=== PATIENT | female | born 1975 | race American Indian/Alaskan Native ===

== ENCOUNTER 2017-02-08 15:56 | Emergency (ER) | payer BC ==
[2017-02-08 16:15] VITALS: BMI 23.6
[2017-02-08 16:18] VITALS: TEMP 98; O2SAT 100
[2017-02-08] MEDS ORDERED: Sodium Chloride 0.9% 1,000 ML IV STA (16:31)
[2017-02-08 17:19] LABS: ADD MANUAL DIFF? NO
[2017-02-08 17:27] LABS: BASO # 0.03 K/mm3 (0.0-2.0); BASO % 0.4 % (0.0-3.0); EOS # 0.1 (0.0-0.7); GRAN # 3.74 (1.4-6.5); HEMATOCRIT 35.7 % (36.0-48.0); LYMPH # 3.4 (1.2-3.4); LYMPH % 42.9 % (22.0-35.0); MEAN CELL VOLUME 94.9 fL (80.0-105.0); MEAN CORPUSCULAR HEMOGLOBIN 32.7 pg (25.0-35.0); MEAN CORPUSCULAR HGB CONC 34.5 g/dl (31.0-37.0); MEAN PLATELET VOLUME 10.5 fl (7.0-11.0); MONO # 0.6 (0.1-0.6); MONO % 7.7 % (1.0-6.0); PLATELET COUNT 192 10^3/uL (120.0-450.0); RED CELL DISTRIBUTION WIDTH 12.3 % (11.5-14.5); WHITE BLOOD COUNT 7.8 10^3/ul (4.5-11.0)
--- NOTE | 2017-02-08 17:29 | ED PDOC ---
Arrival/HPI - General Chief Complaint: Abdominal Pain Time Seen by Provider: 02/08/17 16:20 - History of Present Illness Associated Symptoms (Text): Patient is a 41 yr old female who states that for the past 1 week she has been having a gassy feeling in her "belly" (pointing to the midepigastric area). She has also been belching frequently. She has been diagnosed in the past w/ a hiatal hernia and was told that she may one day have to be started on medications for that. Tums and Pepto Bismo did help her symptoms slightly. No N/V. No fever. PMD: Dr. Ila De Leon . Past Medical History - Provider Review Nursing Documentation Reviewed: Yes - Patient History Narrative Patient History: PMH: Hiatal hernia, endometriosis - Psychiatric Hx Substance Use: No - Surgical History Other/Comment: ovarian cyst. Endometriosis Surgery - Suicidal Assessment Feels Threatened In Home Enviroment: No Family/Social History - Physician Review Nursing Documentation Reviewed: Yes Family/Social History: Diabetes, Hypertension, Neoplasm/Cancer Smoking Status: Never Smoked Hx Alcohol Use: No Hx Substance Use: No Allergies/Home Meds Allergies/Adverse Reactions: Allergies strawberry Allergy (Verified 02/08/17 16:15) RASH Home Medications: Home Meds Medication Instructions Recorded Confirmed Norethindrone-Ethinyl Estrad [Faby 1 tab PO DAILY 10/22/16 02/08/17 35 Mcg-0.5 mg] Review of Systems - Physician Review All systems were reviewed & negative as marked: Yes - Review of Systems Constitutional: absent: Fatigue Respiratory: absent: SOB Cardiovascular: absent: Chest Pain Gastrointestinal: Abdominal Pain. absent: Vomiting Musculoskeletal: absent: Back Pain Neurological: absent: Headache Physical Exam Vital Signs Reviewed: Yes Vital Signs Temp Pulse Resp BP Pulse Ox 02/08/17 18:00 71 18 128/79 100 02/08/17 16:15 98 F 78 15 130/89 100 Temperature: Afebrile Blood Pressure: Normal Pulse: Regular Respiratory Rate: Normal Appearance: Positive for: Well-Appearing, Non-Toxic, Comfortable Pain Distress: None Mental Status: Positive for: Alert and Oriented X 3 - Systems Exam Head: Present: Atraumatic, Normocephalic Extroacular Muscles: Present: EOMI Conjunctiva: Present: Normal Ears: Present: Normal Mouth: Present: Moist Mucous Membranes Pharnyx: Present: Normal Nose (External): Present: Atraumatic Neck: Present: Normal Range of Motion Respiratory/Chest: Present: Clear to Auscultation, Good Air Exchange. No: Respiratory Distress, Accessory Muscle Use Cardiovascular: Present: Regular Rate and Rhythm, Normal S1, S2. No: Murmurs Abdomen: Present: Tenderness (mid-epigastric area), Normal Bowel Sounds. No: Distention, Rebound, Guarding Upper Extremity: Present: Normal Inspection. No: Cyanosis, Edema Lower Extremity: Present: Normal Inspection. No: Edema Neurological: Present: Speech Normal, Motor Func Grossly Intact, Normal Sensory Function Skin: Present: Warm, Dry, Normal Color. No: Rashes Psychiatric: Present: Alert, Oriented x 3, Normal Insight, Normal Concentration Medical Decision Making ED Course and Treatment: 02/08/17 17:31 Initial Impression: Midepigastric pain--possibly due to underlying hiatial hernia/PUD Initial Plan: Will check labs and give Pepcid 02/08/17 18:33 Patient feels better after pepcid. Abd nontender. Will d/c home. - Lab Interpretations Lab Results: 02/08/17 17:07 02/08/17 17:07 Lab Results 02/08/17 17:07: WBC 7.8, RBC 3.76, Hgb 12.3, Hct 35.7 L, MCV 94.9, MCH 32.7, MCHC 34.5, RDW 12.3, Plt Count 192, MPV 10.5, Gran % 48.0 L, Lymph % (Auto) 42.9 H, [place] % (Auto) 7.7 H, Eos % (Auto) 1.0 L, Baso % (Auto) 0.4, Gran # 3.74 , Lymph # 3.4, [place] # 0.6, Eos # 0.1, Baso # 0.03, PT 10.7, INR 0.99, APTT 26.4 , Sodium 142, Potassium 4.1, Chloride 103, Carbon Dioxide 27, Anion Gap 16, BUN 7, Creatinine 0.7, Est GFR ( Amer) > 60, Est GFR (Non-Af Amer) > 60, Random Glucose 98, Calcium 9.3, Total Bilirubin 0.6, AST 26, ALT 6 L, Alkaline Phosphatase 60, Total Protein 8.2, Albumin 4.1, Globulin 4.1, Albumin/Globulin Ratio 1.0 L, Lipase 95 02/08/17 16:33: Urine Color Yellow, Urine Appearance Clear, Urine pH 6.5, Ur Specific Wiggins <= 1.005, Urine Protein Negative, Urine Glucose (UA) Negative, Urine Ketones Negative, Urine Blood Large H, Urine Nitrate Negative, Urine Bilirubin Negative, Urine Urobilinogen 0.2, Ur Leukocyte Esterase Negative, Urine RBC 15 - 20, Urine WBC 1 - 3, Ur Epithelial Cells 1 - 3, Urine Bacteria Few, Urine HCG, Qual Negative - Medication Orders Current Medication Orders: Sodium Chloride (Sodium Chloride 0.9%) 1,000 mls @ 100 mls/hr IV .Q10H STA Stop: 02/09/17 02:30 Last Admin: 02/08/17 16:58 Dose: 100 MLS/HR eMAR Start Stop Document 02/08/17 16:58 OCS (Rec: 02/08/17 17:05 OCS [facility] [id number]) Intravenous Solution Start Date 02/08/17 Start Time 17:05 Discontinued Medications Famotidine (Pepcid) 20 mg IVP STAT STA Stop: 02/08/17 16:32 Last Admin: 02/08/17 17:05 Dose: 20 MG IVP Administration Document 02/08/17 17:05 OCS (Rec: 02/08/17 17:05 OCS [facility] [id number]) Charges for Administration # of IVP Administrations 1 Disposition/Present on Arrival - Present on Arrival Any Indicators Present on Arrival: No History of DVT/PE: No History of Uncontrolled Diabetes: No Urinary Catheter: No History of Decub. Ulcer: No History Surgical Site Infection Following: None - Disposition Have Diagnosis and Disposition been Completed?: Yes Diagnosis: Hiatal hernia Disposition: HOME/ ROUTINE Disposition Time: 18:35 Patient Plan: Discharge Patient Problems: Current Active Problems Problem Status Diagnosed Hiatal hernia Acute Condition: IMPROVED Discharge Instructions (ExitCare): Hiatal Hernia (ED) Print Language: SWEDISH Additional Instructions: Ms. Trujillo, thank you for letting us take care of you today. Return to the ER if your symptoms worsen, or if any problems. Take the medications listed below as prescribed. Follow up with Dr. Hayes next week for a re-evaluation. Prescriptions: Famotidine [Pepcid] 1 tab PO BID #40 tab Referrals: Sarthak Vega DO [Primary Care Provider] - Follow up with primary
[2017-02-08 17:38] LABS: PH,URINE 6.5 (4.7-8.0); URINE BILIRUBIN NEGATIVE (NEGATIVE); URINE BLOOD LARGE (NEGATIVE); URINE GLUCOSE (UA) NEGATIVE (NEGATIVE); URINE KETONE NEGATIVE (NEGATIVE); URINE LEUKOCYTE ESTERASE NEGATIVE Leu/uL (NEGATIVE); URINE PROTEIN NEGATIVE mg/dL (<30 mg/dL); URINE UROBILINOGEN 0.2 E.U./dL (<1 E.U./dL)
[2017-02-08 17:39] LABS: ALKALINE PHOSPHATASE 60 U/L (38-133); ALT/SGPT 6 U/L (7-56); AST/SGOT 26 U/L (15-39); BILIRUBIN,TOTAL 0.6 mg/dL (0.2-1.3); BLOOD UREA NITROGEN 7 mg/dL (7-21); CALCIUM 9.3 mg/dL (8.4-10.5); CARBON DIOXIDE 27 mmol/L (21-33); CHLORIDE 103 mmol/L (98-107); GFR AFRICAN-AMERICAN > 60; GLUCOSE,RANDOM 98 mg/dL (70-110); LIPASE 95 U/L (23-300); POTASSIUM 4.1 mmol/L (3.6-5.0); SODIUM 142 mmol/L (132-148); TOTAL PROTEIN 8.2 g/dL (5.8-8.3)
[2017-02-08 17:43] LABS: URINE APPEARANCE CLEAR (CLEAR); URINE COLOR YELLOW (YELLOW)
[2017-02-08 17:54] LABS: INR 0.99 (0.93-1.08); PARTIAL THROMBOPLASTIN TIME 26.4 Seconds (23.7-30.8)
[2017-02-08 17:59] LABS: URINE BACTERIA FEW (NEG); URINE RBC 15 - 20 /hpf (0-2)
[2017-02-08 18:06] VITALS: BP 128/79; PULSE 71; RESP 18
--- NOTE | 2017-02-09 18:33 | CARD ---
APPROVED REPORT EKG Measurement Heart [id number] <Conclusion> Normal sinus rhythm Normal ECG
== END 2017-02-08 18:55 | disposition home or self-care (01) ==
LOC: ED 15:56
DX: K44.9 Diaphragmatic hernia without obstruction or gangrene (principal)
CPT/HCPCS: 80053; 81001; 83690; 84703; 85025; 85610; 85730; 93005; 96374; 99283; J7040